=== PATIENT | female | born 1970 | race Caucasian/White ===

== ENCOUNTER 2017-03-13 14:33 | Emergency (ER) | payer SELFPAY ==
[~2017-03-13] VITALS: Ht 175.3 cm; Wt 145.0 kg
[~2017-03-13 14:33] MED LIST: CLONIDINE0.2 MG OR; LISINOP/HCTZ1 TA1 PO; LORTAB 5 OR; NAPROSYN500 MG PO; NIFEDIPINE30 MG PO; NO; PREVACID30 M1 PO; ULTRAM50 M1 PO; ZOFRAN ODT4 MG PO
[2017-03-13 15:15] LABS: HEMATOCRIT 48.1 % (37.0-47.0); HEMOGLOBIN 15.7 g/dl (12.0-16.0); IMMATURE GRANULOCYTES 0.4 % (0.0-1.0); MEAN CELL VOLUME 89.6 fL CALC (80.0-100.0); MEAN CORPUSCULAR HGB 29.2 pG CALC (26.0-32.0); MEAN CORPUSCULAR HGB CONC 32.6 g/L CALC (32.0-36.0); NEUT# 8.26 thou/uL (2.00-7.15); RED BLOOD COUNT 5.37 mill/uL (4.20-5.60); RED CELL DISTRI WIDTH 13.8 % (11.5-15.5)
[2017-03-13 15:38] LABS: ALKALINE PHOSPHATASE 80 u/l (38-126); AMYLASE 88 u/l (30-110); ANION GAP 13 (6-22 (CALC)); BILIRUBIN, TOTAL 0.5 mg/dL (0.0-1.4); BUN 32 mg/dL (7-17); BUN/CREATININE RATIO 24 (12-20 (CALC)); CALCIUM 9.7 mg/dL (8.4-10.2); CARBON DIOXIDE 28 mmol/l (22-30); CHLORIDE 99 mmol/l (95-108); CREATININE 1.4 mg/dL (0.5-1.0); GFR 40 ML/MIN (>=60 (CALC)); GFR FOR AFR.AMER. 49 ML/MIN (>=60 (CALC)); GLUCOSE 112 mg/dL (65-105); LIPASE 78 u/l (23-300); POTASSIUM 3.8 mmol/l (3.5-5.1); SGOT/AST 27 u/l (14-36); SGPT/ALT 37 u/l (9-52); SODIUM 136 mmol/l (137-146); TOTAL PROTEIN 7.7 g/dL (6.3-8.2)
[2017-03-13 15:48] LABS: MYOGLOBIN 48 ng/mL (0 - 62)
[2017-03-13 19:48] LABS: URINE BILIRUBIN - DIPSTICK NEGATIVE (NEGATIVE); URINE BLOOD DIPSTICK TRACE-INTACT (NEGATIVE); URINE CLARITY CLEAR; URINE COLOR YELLOW; URINE GLUCOSE - DIPSTICK NEGATIVE (NEGATIVE); URINE KETONE NEGATIVE (NEGATIVE); URINE LEUK ESTERASE NEGATIVE (NEGATIVE); URINE NITRITE - DIPSTICK NEGATIVE (Negative); URINE PH 5.5 (4.5-8.0); URINE PROTEIN - DIPSTICK NEGATIVE (NEG-TRACE); URINE SPECIFIC GRAVITY >=1.030; URINE UROBILINOGEN - DIPSTICK 0.2 E.U./dL (0.2)
[2017-03-13] MEDS ORDERED: CIPROFLOXACN500 MG PO (20:04)
[2017-03-13] MEDS ORDERED: ULTRAM50 M1 PO (20:04)
[2017-03-13 20:08] VITALS: BP 126/59
== END 2017-03-13 20:16 | disposition home or self-care (01) | DRG 392 ==
LOC: ED 14:33
PROVIDERS: Emergency Medicine
DX: R10.11 Right upper quadrant pain (principal); I10 Essential (primary) hypertension; R10.12 Left upper quadrant pain; R19.00 Intra-abdominal and pelvic swelling, mass and lump, unspecified site; K82.9 Disease of gallbladder, unspecified; N20.0 Calculus of kidney; F17.210 Nicotine dependence, cigarettes, uncomplicated

== ENCOUNTER 2024-05-27 19:29 | Observation (INO) | payer OTHER ==
[~2024-05-27] VITALS: Ht 175.3 cm; Wt 136.6 kg
[~2024-05-27 19:29] MED LIST changes: +CIPROFLOXACN500 MG PO
[2024-05-27 20:05] VITALS: BP 141/85
[2024-05-27 20:15] VITALS: BP 143/77
--- NOTE | 2024-05-27 20:15 | NUR ---
PT TAKEN TO ER ROOM 3 VIA WHEELCHAIR FOR BEDSIDE TRIAGE
[2024-05-27] MEDS ORDERED: SODIUM CHLORIDE 0.9% 1,000 ML IV STA (20:20)
[2024-05-27] MEDS ORDERED: PROMETHAZINE HCL 25 MG/ML AMP IV ONE (20:25)
[2024-05-27] MEDS ORDERED: KETOROLAC TROMETHAMINE 30 MG/ML SDV IV ONE (20:25)
[2024-05-27 20:49] LABS: BASO% 0.1 % (0-3); HEMOGLOBIN 15.3 g/dl (12.0-16.0); IMMATURE GRANULOCYTES 0.3 % (0.0-5.0); MEAN CELL VOLUME 89.6 fL CALC (80.0-100.0); MEAN CORPUSCULAR HGB CONC 31.2 g/dL CAL (32.0-36.0); MONO% 4.9 % (2-13); NEUT# 15.84 thou/uL (2.00-7.15); NEUT% 87.7 % (42-76); RED BLOOD COUNT 5.47 mill/uL (4.20-5.60); RED CELL DISTRI WIDTH 12.9 % (11.5-15.5)
[2024-05-27 21:03] LABS: ALBUMIN 3.8 g/dL (3.2-5.0); BILIRUBIN, TOTAL 0.6 mg/dL (0.02-1.3); TOTAL PROTEIN 6.7 g/dL (6.3-8.2)
[2024-05-27 21:04] LABS: POTASSIUM 5.1 mmol/l (3.5-5.1)
--- NOTE | 2024-05-27 21:15 | NUR ---
Pt. rechecked post pain med administration. Pain level (1-10): 0/10 Pain better/worse: BETTER PT STATES SHE NO LONGER FEELS PAIN OR DISCOMFORT AFTER ADMINISTRATION OF TORADOL. PT LAYING ON BED AND APPEARS COMFORTABLE AT THIS TIME.
--- NOTE | 2024-05-27 22:16 | NUR ---
PT LAYING ON BED, APPEARS COMFORTABLE AT THIS TIME. PENDING RADIOLOGY RESULTS.
[2024-05-27] MEDS ORDERED: LACTATED RINGER'S 1,000 ML IV ONE (23:05)
--- NOTE | 2024-05-27 23:14 | NUR ---
PT LAYING ON BED RESTING AT THIS TIME. PAIN LEVEL REMAINS A 0/10 PER PATIENT. NO DISTRESS NOTED AT THIS TIME.
[2024-05-28] MEDS ORDERED: PROMETHAZINE HCL 25 MG/ML AMP IV PRN (00:10)
[2024-05-28] MEDS ORDERED: FAMOTIDINE 10MG/ML 2ML SDV IV PRN (00:10)
[2024-05-28] MEDS ORDERED: ALUM & MAG HYDROX-SIMETHICONE 30 ML PO PRN (00:10)
[2024-05-28] MEDS ORDERED: MORPHINE SULFATE 4 MG/ML VIAL IV PRN ×2 (00:10→06:30)
[2024-05-28] MEDS ORDERED: ONDANSETRON HCl 4 MG/2 ML SDV IV PRN (00:10)
[2024-05-28] MEDS ORDERED: ACETAMINOPHEN 325 MG/TAB PO PRN ×2 (00:10→06:25)
[2024-05-28] MEDS ORDERED: SODIUM CHLORIDE 0.9% 1,000 ML IV PRN ×2 (00:10→06:25)
[2024-05-28] MEDS ORDERED: MAGNESIUM HYDROXIDE 30 ML UDC PO PRN ×2 (00:10→06:25)
[2024-05-28] MEDS ORDERED: KETOROLAC TROMETHAMINE 30 MG/ML SDV IV PRN (00:10)
[2024-05-28] MEDS ORDERED: ONDANSETRON 4 MG/TAB ODT PO PRN (00:10)
--- NOTE | 2024-05-28 00:17 | NUR ---
PT LAYING ON BED, NO DISTRESS NOTED AT THIS TIME. PT EDUACTED ABOUT ADMISSION TO MEDSUR FLOOR. PT VOICED UNDERSTANDING.
[2024-05-28] MEDS ORDERED: CLARIFY DOSE PO PRN (01:35)
[2024-05-28] MEDS ORDERED: CHOLESTEROL MED (02:21)
[2024-05-28] MEDS ORDERED: DIABETES MED (02:28)
[2024-05-28] MEDS ORDERED: ENOXAPARIN SODIUM 40 MG/0.4 ML SYR SC SCH (02:45)
[2024-05-28] MEDS ORDERED: CLARIFY DOSE IV PRN (02:45)
--- NOTE | 2024-05-28 02:45 | NUR ---
PT CARE REPORT GIVEN TO JUL[facility]AY[facility] F[facility]. PT TRANSPORTED TO [facility] FLOOR [id number].
[2024-05-28 03:10] VITALS: BP 153/85
--- NOTE | 2024-05-28 03:45 | NUR ---
RECEIVED REPORT FROM NURSE EDDIE ARAUJO TRANSPORTED VIA BED, PATIENT ALERT ORIENTED, PATIENT ON NPO, ARRIVED MS UNIT AT 0258, PATIENT IN NPO, PATIENT THREATENING TO LEAVE AMA IF NOT GIVEN FOOD, PATIENT MADE AWARE ABOUT THE REASON NPO WAS BECAUSE OF THE PANCREATITIS AND SHE HAS ULTRASOUND ABDOMEN ORDER AND PREPARATION IS FOR HER TO BE NPO, PATIENT STATED THAT SHE UNDERSTOOD SHE WILL STAY FOR NOW BUT IF SHE GETS HUNGRY SHE WILL LEAVE, ADMISSION ASSESSMENT COMPLETED, PATIENT STATRTED ON IV FLUIDS NS @ 125CC/HR ON LAC, EDDIE ORIENTED TO ROOM AND CALL LIGHT SYSTEM CALL LIGHT IN REACHED.
[2024-05-28] MEDS ORDERED: LISINOPRIL20 M1 PO (03:52)
[2024-05-28] MEDS ORDERED: METFORMIN HCL500 M1 PO (03:52)
[2024-05-28] MEDS ORDERED: ATORVASTATIN CA10 MG PO (03:53)
[2024-05-28] MEDS ORDERED: PIPERACILLIN Sodium-Tazobactam 3.375 GM in SODIUM CHLORIDE 0.9% 100 ML IV SCH ×2 (06:00→12:00)
[2024-05-28] MEDS ORDERED: PIPERACILLIN Sodium-Tazobactam 2.25 GM in SODIUM CHLORIDE 0.9% 50 ML IV SCH (06:00)
[2024-05-28] MEDS ORDERED: DEXTROSE 250 ML IV PRN (06:30)
[2024-05-28 07:04] VITALS: BP 144/73
[2024-05-28 07:06] LABS: BASO% 0.2 % (0-3); HEMATOCRIT 46.2 % (37.0-47.0); HEMOGLOBIN 14.6 g/dl (12.0-16.0); IMMATURE GRANULOCYTES 0.5 % (0.0-5.0); LYMPH% 10.2 % (15-41); MEAN CELL VOLUME 90.2 fL CALC (80.0-100.0); MEAN CORPUSCULAR HGB 28.5 pG CALC (26.0-32.0); MEAN CORPUSCULAR HGB CONC 31.6 g/dL CAL (32.0-36.0); MONO% 5.5 % (2-13); NEUT# 13.58 thou/uL (2.00-7.15); NEUT% 83.6 % (42-76); RED BLOOD COUNT 5.12 mill/uL (4.20-5.60)
[2024-05-28 07:16] LABS: ALBUMIN 3.4 g/dL (3.2-5.0); BILIRUBIN, TOTAL 0.5 mg/dL (0.02-1.3); CHOLESTEROL HDL RATIO 3.3 (<4.4 (CALC)); CREATININE 1.7 mg/dL (0.5-1.0); MAGNESIUM 2.1 mg/dL (1.6-2.3); POTASSIUM 4.7 mmol/l (3.5-5.1); TOTAL PROTEIN 6.4 g/dL (6.3-8.2)
--- NOTE | 2024-05-28 07:48 | NUR ---
Pt resting in bed with eyes colsed. Breathing unlabored, no distress, no complaints. Will continue to monitor.
[2024-05-28] MEDS ORDERED: INSULIN LISPRO 100 UNITS/ML ML SC SCH (08:00)
[2024-05-28] MEDS ORDERED: Pantoprazole Sodium 40 MG VIAL (Protonix) IV SCH (09:00)
[2024-05-28] MEDS ORDERED: LISINOPRIL 20 MG/TAB PO SCH (09:00)
[2024-05-28 09:36] LABS: URINE BILIRUBIN - DIPSTICK Negative (NEGATIVE); URINE BLOOD DIPSTICK Negative (NEGATIVE); URINE COLOR Yellow; URINE GLUCOSE - DIPSTICK Negative (NEGATIVE); URINE KETONE Negative (NEGATIVE); URINE LEUK ESTERASE Negative (NEGATIVE); URINE NITRITE - DIPSTICK Negative (Negative); URINE PROTEIN - DIPSTICK Negative (NEG-TRACE); URINE SPECIFIC GRAVITY 1.025; URINE UROBILINOGEN - DIPSTICK 0.2 E.U./dL (0.2)
[2024-05-28] MEDS ORDERED: PROTONIX40 M2 PO (12:16)
--- NOTE | 2024-05-28 12:29 | NUR ---
Pt resting in bed, eating lunch. No distress, no complaints.
[2024-05-28] MEDS ORDERED: Heparin SODIUM (Porcine) 5,000 UNITS/ML SDV SC SCH (14:00)
--- NOTE | 2024-05-28 14:57 | NUR ---
Discharge instructions given. Patient verbalizes understanding of same. Discharged in stable condition via Wheelchair to Home with family. All belongings sent with pt.
[2024-05-29] MEDS ORDERED: PANTOPRAZOLE SODIUM Sesquihydr 40 MG/TAB PO SCH (09:00)
== END 2024-05-28 15:00 | disposition home or self-care (01) | DRG 439 ==
LOC: ED 19:29 → ED-I 23:55 → ED 05-28 00:12 → MS2 05-28 01:13
PROVIDERS: Family Medicine; ADMIT Student in an Organized Health Care Education/Training Program; ATTEND Student in an Organized Health Care Education/Training Program
DX: K85.90 Acute pancreatitis without necrosis or infection, unspecified (principal); Z68.41 Body mass index [BMI] 40.0-44.9, adult; E66.01 Morbid (severe) obesity due to excess calories; N17.9 Acute kidney failure, unspecified; E11.22 Type 2 diabetes mellitus with diabetic chronic kidney disease; I12.9 Hypertensive chronic kidney disease with stage 1 through stage 4 chronic kidney disease, or unspecified chronic kidney disease; N18.9 Chronic kidney disease, unspecified; F17.200 Nicotine dependence, unspecified, uncomplicated; Z79.84 Long term (current) use of oral hypoglycemic drugs
CPT/HCPCS: G0378; J1650; J2470

== ENCOUNTER 2024-12-20 21:23 | Emergency (ER) | payer OTHER ==
[~2024-12-20] VITALS: Ht 175.3 cm; Wt 142.0 kg
[~2024-12-20 21:23] MED LIST changes: +ATORVASTATIN CA10 MG PO; +CHOLESTEROL MED; +DIABETES MED; +LISINOPRIL20 M1 PO; +METFORMIN HCL500 M1 PO; +PROTONIX40 M2 PO
[2024-12-20] MEDS ORDERED: SODIUM CHLORIDE 0.9% 1,000 ML IV ONE (21:45)
[2024-12-20] MEDS ORDERED: DiphenhydrAMINE HCL 50 MG/ML SDV IV ONE (21:50)
[2024-12-20] MEDS ORDERED: PROMETHAZINE HCL 25 MG/ML AMP IV ONE (21:50)
[2024-12-20] MEDS ORDERED: KETOROLAC TROMETHAMINE 30 MG/ML SDV IV ONE (21:50)
[2024-12-20] MEDS ORDERED: ACETAMINOPHEN 500 MG TAB PO ONE (21:50)
[2024-12-20 21:59] LABS: BASO% 0.8 % (0-3); EOS% 2.4 % (0-8); HEMATOCRIT 45.4 % (37.0-47.0); HEMOGLOBIN 13.7 g/dl (12.0-16.0); IMMATURE GRANULOCYTES 0.2 % (0.0-5.0); LYMPH% 20.6 % (15-41); MEAN CELL VOLUME 90.3 fL CALC (80.0-100.0); MEAN CORPUSCULAR HGB 27.2 pG CALC (26.0-32.0); MEAN CORPUSCULAR HGB CONC 30.2 g/dL CAL (32.0-36.0); MONO% 14.6 % (2-13); NEUT# 3.11 thou/uL (2.00-7.15); NEUT% 61.4 % (42-76); RED BLOOD COUNT 5.03 mill/uL (4.20-5.60); RED CELL DISTRI WIDTH 13.4 % (11.5-15.5)
[2024-12-20 22:03] VITALS: BP 111/72
[2024-12-20 22:09] LABS: POTASSIUM 4.3 mmol/l (3.5-5.1); TOTAL PROTEIN 7.4 g/dL (6.3-8.2)
[2024-12-20 22:11] LABS: ALBUMIN 4.2 g/dL (3.2-5.0); BILIRUBIN, TOTAL 0.8 mg/dL (0.02-1.3)
[2024-12-21 00:25] VITALS: BP 111/72
== END 2024-12-21 00:25 | disposition home or self-care (01) ==
LOC: ED 21:23
PROVIDERS: Family Medicine
DX: R51.9 Headache, unspecified (principal); I10 Essential (primary) hypertension; E11.9 Type 2 diabetes mellitus without complications; Z63.4 Disappearance and death of family member; Z79.84 Long term (current) use of oral hypoglycemic drugs
CPT/HCPCS: J1100; J1200; J2550